=== PATIENT | male | born 1955 | race Caucasian/White ===

== ENCOUNTER 2019-04-08 14:12 | Emergency (ER) | payer OTHER ==
[2019-04-08] MEDS ORDERED: MORPHINE 4 MG/ML SYR ONE (14:53)
[2019-04-08] MEDS ORDERED: ONDANSETRON 4 MG/2 ML VIAL ONE (14:53)
[2019-04-08] MEDS ORDERED: NA CHLORIDE 0.9% 1,000 ML ONE ×2 (14:54→17:45)
[2019-04-08] MEDS ORDERED: FAMOTIDINE 20 MG/2 ML VIAL IV ONE (14:54)
[2019-04-08 15:23] LABS: Absolute Lymphocytes (CBC) 0.6 K/uL (0.7-4.9); Basophils % 0.4 % (0-1.3); Hematocrit 42.3 % (39.6-49.0); Lymphocytes % 10.3 % (15.3-44.8); MPV 8.2 fL (7.6-11.3); RBC Red Blood Cell Count 4.09 M/uL (4.33-5.43)
--- NOTE | 2019-04-08 15:24 | RAD REPORT ---
EXAM DESCRIPTION: RAD - Chest Single View - 04/08/2019 2:50 pm CLINICAL HISTORY: ABDOMINAL DISTENTION Chest pain. COMPARISON: <Comparisons> FINDINGS: Portable technique limits examination quality. The lungs are grossly clear. The heart is normal in size. No displaced fractures. IMPRESSION: No acute intrathoracic process suspected.
[2019-04-08 15:29] LABS: Protime INR 1.04
--- NOTE | 2019-04-08 15:43 | RAD REPORT ---
EXAM DESCRIPTION: US - Abdomen Exam Limited - 04/08/2019 3:26 pm CLINICAL HISTORY: ABD PAIN COMPARISON: No comparisons FINDINGS: The gallbladder demonstrates no gallstones. Tiny 4 mm gallbladder polyp possible. No peric holecystic fluid or gallbladder wall thickening. The common bile duct is normal measuring 4 mm. The liver demonstrates fatty liver. IMPRESSION: No gallstones or pathologic biliary dilatation. 4 mm gallbladder polyp possible.
[2019-04-08 15:44] LABS: ALT/SGPT 50 U/L (12-78); AST/SGOT 63 U/L (15-37); Albumin 3.8 g/dL (3.4-5.0); Alkaline Phosphatase 83 U/L (45-117); BUN Blood Urea Nitrogen 15 mg/dL (7-18); Bicarbonate 28 mmol/L (21-32); Bilirubin Direct 0.3 mg/dL (0-0.2); Bilirubin Total 0.8 mg/dL (0.2-1.0); Glucose Level 128 mg/dL (74-106); Lipase 470 U/L (73-393); NT PRO-BNP 69 pg/mL (<125); Potassium 3.8 mmol/L (3.5-5.1); Protein, Total 8.1 g/dL (6.4-8.2); Sodium Level 140 mmol/L (136-145); Troponin (Emerg Dept Use Only) < 0.02 ng/mL (0.0-0.045)
--- NOTE | 2019-04-08 18:21 | RAD REPORT ---
EXAM DESCRIPTION: CTAbdomen Pelvis W Contrast - 04/08/2019 5:58 pm CLINICAL HISTORY: Abdominal pain. ABD PAIN COMPARISON: CT ABD PELVIS W CONTRAST dated 09/05/2013 TECHNIQUE: Biphasic CT imaging of the abdomen and pelvis was performed with 100 ml non-ionic IV cont rast. All CT scans are performed using dose optimization technique as appropriate and may include automated exposure control or mA/KV adjustment according to patient size. FINDINGS: The lung bases are clear.Small hiatal hernia is seen with gastroesophageal reflux. Advanced fatty liver infiltration pattern is seen. The spleen, adrenal glands and pancreas are within normal limits. Small stone is seen inferior left kidney without hydronephrosis. No right-sided hydro nephrosis. No bowel obstruction, free air, free fluid or abscess. Small fat containing right upper quadrant vent ral hernias. Scattered colonic diverticulosis is seen. The appendix appears surgically absent. No ev idence of significant lymphadenopathy. Lumbar orthopedic hardware noted. IMPRESSION: No acute intra-abdominal or pelvic finding. Advanced fatty liver. GERD.
--- NOTE | 2019-04-08 18:30 | ER ---
Nurse's Notes [facility] Name: Osmel Ely Age: 63 yrs Sex: Male : 1955 Arrival Date: 04/08/2019 Time: 14:15 Bed 25 Private MD: Jefferson Ortiz H Diagnosis: Abdominal tenderness;Gastritis, unspecified;Functional dyspepsia Presentation: 04/08 14:20 Presenting complaint: Patient states: I have been having a lot of mucus drainage since la1 and that usually causes me to have "mucus attacks" where I get abd pain and vomiting. Pt also reports hx of diverticulitis. Transition of care: patient was not received from another setting of care. Onset of symptoms was April 08, 2019. Risk Assessment: Do you want to hurt yourself or someone else? Patient reports no desire to harm self or others. Initial Sepsis Screen: Does the patient meet any 2 criteria? HR > 90 bpm. Does the patient have a suspected source of infection? No. Patient's initial sepsis screen is negative. Care prior to arrival: None. 14:20 Method Of Arrival: Ambulatory la1 14:20 Acuity: JEAN 3 la1 Historical: - Allergies: 14:21 Hydrocodone-Acetaminophen; la1 - PMHx: 14:21 Hypertension; High Cholesterol; GERD; la1 - PSHx: 14:21 Appendectomy; colon sx due to diverticulitis with abscess; la1 - Immunization history:: Adult Immunizations up to date. - Social history:: Smoking status: Patient/guardian denies using tobacco, Smoking status: Patient uses tobacco products, smokes one-half pack cigarettes per day. - Ebola Screening: : No symptoms or risks identified at this time. - Family history:: not pertinent. Screenin:28 Abuse screen: Denies threats or abuse. Denies injuries from another. Nutritional aj1 screening: No deficits noted. Tuberculosis screening: No symptoms or risk factors identified. 19:12 Fall Risk None identified. aj1 Assessment: 14:28 General: Appears in no apparent distress. comfortable, Behavior is calm, cooperative, aj1 appropriate for age. Pain: Complains of pain in right upper quadrant Pain does not radiate. Pain currently is 5 out of 10 on a pain scale. Neuro: Level of Consciousness is awake, alert, obeys commands, Oriented to person, place, time, situation. Cardiovascular: Patient's skin is warm and dry. Respiratory: Airway is patent Respiratory effort is even, unlabored, Respiratory pattern is regular, symmetrical. GI: Abdomen is flat, non-distended, Bowel sounds present X 4 quads. Abd is soft X 4 quads Abdomen is tender to palpation in right upper quadrant Reports diarrhea, nausea, vomiting. : No signs and/or symptoms were reported regarding the genitourinary system. EENT: No signs and/or symptoms were reported regarding the EENT system. Derm: No signs and/or symptoms reported regarding the dermatologic system. Skin is pink, warm \\T\\ dry. normal. Musculoskeletal: No signs and/or symptoms reported regarding the musculoskeletal system. Circulation, motion, and sensation intact. 15:30 Reassessment: Patient appears in no apparent distress at this time. No changes from aj1 previously documented assessment. Patient and/or family updated on plan of care and expected duration. Pain level reassessed. Patient is alert, oriented x 3, equal unlabored respirations, skin warm/dry/pink. 16:10 Reassessment: Patient appears in no apparent distress at this time. No changes from aj1 previously documented assessment. Patient and/or family updated on plan of care and expected duration. Pain level reassessed. Patient is alert, oriented x 3, equal unlabored respirations, skin warm/dry/pink. 17:15 Reassessment: Patient appears in no apparent distress at this time. No changes from aj1 previously documented assessment. Patient and/or family updated on plan of care and expected duration. Pain level reassessed. Patient is alert, oriented x 3, equal unlabored respirations, skin warm/dry/pink. 18:15 Reassessment: Patient appears in no apparent distress at this time. No changes from aj1 previously documented assessment. Patient and/or family updated on plan of care and expected duration. Pain level reassessed. Patient is alert, oriented x 3, equal unlabored respirations, skin warm/dry/pink. 19:11 Reassessment: Patient appears in no apparent distress at this time. No changes from aj1 previously documented assessment. Patient and/or family updated on plan of care and expected duration. Pain level reassessed. Patient is alert, oriented x 3, equal unlabored respirations, skin warm/dry/pink. Vital Signs: 14:21 BP 125 / 79; Pulse 106; Resp 16; Temp 98.6; Pulse Ox 98% on R/A; Weight 61.69 kg; la1 Height 5 ft. 6 in. (167.64 cm); 15:15 BP 124 / 70; Pulse 88; Resp 18; Pulse Ox 99% ; aj1 16:15 BP 145 / 87; Pulse 68; Pulse Ox 100% on R/A; jp3 17:15 BP 136 / 75; Pulse 72; Resp 18; Pulse Ox 99% on R/A; aj1 18:15 BP 122 / 65; Pulse 62; Resp 18; Pulse Ox 99% on R/A; aj1 19:12 BP 125 / 72; Pulse 66; Resp 16; Pulse Ox 99% on R/A; aj1 14:21 Body Mass Index 21.95 (61.69 kg, 167.64 cm) la1 ED Course: 14:15 Patient arrived in ED. as 14:16 Jefferson Ortiz DO is Private Physician. as 14:20 Triage completed. la1 14:22 Arm band placed on right wrist. la1 14:24 Cassandra Rosario, RN is Primary Nurse. aj1 14:28 Patient has correct armband on for positive identification. Placed in gown. Bed in low aj1 position. Call light in reach. 14:28 No provider procedures requiring assistance completed. aj1 14:31 Jm Amador MD is Attending Physician. delon 14:51 XRAY Chest (1 view) In Process Unspecified. EDMS 15:25 Ultrasound completed. Patient tolerated well. sg3 15:25 US Abdomen Limited In Process Unspecified. EDMS 15:35 EKG done, by ED staff, reviewed by Jm Amador MD. Patient maintains SpO2 saturation jp3 greater than 95% on room air. 16:13 Basic Metabolic Panel Sent. jp3 16:13 CBC with Diff Sent. jp3 16:13 LFT's Sent. jp3 17:58 CT completed. Patient tolerated procedure well. Patient moved back from CT. mw3 18:01 CT Abd/Pelvis - PO and IV Contrast In Process Unspecified. EDMS 18:29 Jefferson Ortiz DO is Referral Physician. delon 18:29 Delvin Card MD is Referral Physician. delon 19:13 IV discontinued, intact, bleeding controlled, No redness/swelling at site. Pressure aj1 dressing applied. Administered Medications: 15:07 Drug: Pepcid 20 mg Route: IVP; Site: left antecubital; aj1 15:08 Drug: morphine 4 mg {Note: RASS score 0- alert and priented.} Route: IVP; Site: left aj1 antecubital; 15:08 Drug: Zofran 4 mg Route: IVP; Site: left antecubital; aj1 15:09 Drug: NS 0.9% 1000 ml Route: IV; Rate: 1 bolus; Site: left antecubital; aj1 17:51 Drug: NS 0.9% 1000 ml Route: IV; Rate: 1 bolus; Site: left antecubital; aj1 Outcome: 18:29 Discharge ordered by . [facility] 19:13 Discharged to home ambulatory. aj1 19:13 Condition: good 19:13 Discharge instructions given to patient, Instructed on discharge instructions, follow up and referral plans. medication usage, Demonstrated understanding of instructions, follow-up care, medications, Prescriptions given X 3. 19:13 Patient left the ED. aj1 Signatures: Dispatcher [employer] EDMS Cassandra Rosario RN RN aj1 Jm Amador MD MD cha Martinez, Amelia as Attema, Lee, RN RN Radha Trivedi3 Екатерина Branham 3 Judah Rodriguez jp3
--- NOTE | 2019-04-08 18:31 | EDPHYS ---
Physician Documentation [facility] Name: Osmel Ely Age: 63 yrs Sex: Male : 1955 Arrival Date: 04/08/2019 Time: 14:15 Bed 25 Private MD: Jefferson Ortiz H ED Physician Jm Amador HPI: 04/08 14:46 This 63 yrs old Male presents to ER via Ambulatory with complaints of delon Abdominal Pain. 14:46 The patient presents with abdominal pain in the epigastric area, in the upper abdomen. delon Onset: The symptoms/episode began/occurred 1 day(s) ago. The symptoms radiate to right back. Associated signs and symptoms: none. The symptoms are described as constant, crampy. Modifying factors: The symptoms are alleviated by nothing, the symptoms are aggravated by nothing. The patient has not experienced similar symptoms in the past. Historical: - Allergies: 14:21 Hydrocodone-Acetaminophen; la1 - PMHx: 14:21 Hypertension; High Cholesterol; GERD; la1 - PSHx: 14:21 Appendectomy; colon sx due to diverticulitis with abscess; la1 - Immunization history:: Adult Immunizations up to date. - Social history:: Smoking status: Patient/guardian denies using tobacco, Smoking status: Patient uses tobacco products, smokes one-half pack cigarettes per day. - Ebola Screening: : No symptoms or risks identified at this time. - Family history:: not pertinent. ROS: 14:46 Constitutional: Negative for fever, chills, and weight loss, Eyes: Negative for injury, delon pain, redness, and discharge, ENT: Negative for injury, pain, and discharge, Neck: Negative for injury, pain, and swelling, Cardiovascular: Negative for chest pain, palpitations, and edema, Respiratory: Negative for shortness of breath, cough, wheezing, and pleuritic chest pain, Back: Negative for injury and pain, : Negative for injury, bleeding, discharge, and swelling, MS/Extremity: Negative for injury and deformity, Skin: Negative for injury, rash, and discoloration, Neuro: Negative for headache, weakness, numbness, tingling, and seizure, Psych: Negative for depression, anxiety, suicide ideation, homicidal ideation, and hallucinations, Allergy/Immunology: Negative for hives, rash, and allergies, Endocrine: Negative for neck swelling, polydipsia, polyuria, polyphagia, and marked weight changes, Hematologic/Lymphatic: Negative for swollen nodes, abnormal bleeding, and unusual bruising. 14:46 Abdomen/GI: Positive for abdominal pain, of the epigastric area and right upper quadrant. Exam: 14:46 Constitutional: This is a well developed, well nourished patient who is awake, alert, delon and in no acute distress. Head/Face: Normocephalic, atraumatic. Eyes: Pupils equal round and reactive to light, extra-ocular motions intact. Lids and lashes normal. Conjunctiva and sclera are non-icteric and not injected. Cornea within normal limits. Periorbital areas with no swelling, redness, or edema. ENT: Nares patent. No nasal discharge, no septal abnormalities noted. Tympanic membranes are normal and external auditory canals are clear. Oropharynx with no redness, swelling, or masses, exudates, or evidence of obstruction, uvula midline. Mucous membranes moist. Neck: Trachea midline, no thyromegaly or masses palpated, and no cervical lymphadenopathy. Supple, full range of motion without nuchal rigidity, or vertebral point tenderness. No Meningismus. Chest/axilla: Normal chest wall appearance and motion. Nontender with no deformity. No lesions are appreciated. Cardiovascular: Regular rate and rhythm with a normal S1 and S2. No gallops, murmurs, or rubs. Normal PMI, no JVD. No pulse deficits. Respiratory: Lungs have equal breath sounds bilaterally, clear to auscultation and percussion. No rales, rhonchi or wheezes noted. No increased work of breathing, no retractions or nasal flaring. Back: No spinal tenderness. No costovertebral tenderness. Full range of motion. Male : Normal genitalia with no discharge or lesions. Skin: Warm, dry with normal turgor. Normal color with no rashes, no lesions, and no evidence of cellulitis. MS/ Extremity: Pulses equal, no cyanosis. Neurovascular intact. Full, normal range of motion. Neuro: Awake and alert, GCS 15, oriented to person, place, time, and situation. Cranial nerves II-XII grossly intact. Motor strength 5/5 in all extremities. Sensory grossly intact. Cerebellar exam normal. Normal gait. Psych: Awake, alert, with orientation to person, place and time. Behavior, mood, and affect are within normal limits. 14:46 Abdomen/GI: Inspection: abdomen appears normal, Bowel sounds: normal, Palpation: mild abdominal tenderness, moderate abdominal tenderness, in the epigastric area and right upper quadrant, Liver: no appreciated palpable abnormalities, Hernia: not appreciated. Vital Signs: 14:21 BP 125 / 79; Pulse 106; Resp 16; Temp 98.6; Pulse Ox 98% on R/A; Weight 61.69 kg; la1 Height 5 ft. 6 in. (167.64 cm); 15:15 BP 124 / 70; Pulse 88; Resp 18; Pulse Ox 99% ; aj1 16:15 BP 145 / 87; Pulse 68; Pulse Ox 100% on R/A; jp3 17:15 BP 136 / 75; Pulse 72; Resp 18; Pulse Ox 99% on R/A; aj1 18:15 BP 122 / 65; Pulse 62; Resp 18; Pulse Ox 99% on R/A; aj1 19:12 BP 125 / 72; Pulse 66; Resp 16; Pulse Ox 99% on R/A; aj1 14:21 Body Mass Index 21.95 (61.69 kg, 167.64 cm) la1 MDM: 14:32 Patient medically screened. [facility] 14:48 Data reviewed: vital signs, nurses notes, lab test result(s), EKG, radiologic studies, [facility] CT scan, plain films, ultrasound. 04/08 14:31 Order name: Basic Metabolic Panel [facility] 04/08 14:31 Order name: CBC with Diff [facility] 04/08 14:31 Order name: LFT's [facility] 04/08 14:31 Order name: Magnesium; Complete Time: 16:02 [facility] 04/08 14:31 Order name: NT PRO-BNP; Complete Time: 16:02 [facility] 04/08 14:31 Order name: PT-INR; Complete Time: 16:02 [facility] 04/08 14:31 Order name: Troponin (emerg Dept Use Only); Complete Time: 16:02 [facility] 04/08 14:31 Order name: XRAY Chest (1 view); Complete Time: 16:02 [facility] 04/08 14:31 Order name: Lipase; Complete Time: 16:02 [facility] 04/08 14:31 Order name: CT Abd/Pelvis - PO and IV Contrast; Complete Time: 18:22 [facility] 04/08 14:34 Order name: Basic Metabolic Panel; Complete Time: 16:02 [facility] 04/08 14:34 Order name: CBC with Automated Diff; Complete Time: 16:02 [facility] 04/08 14:34 Order name: Liver (Hepatic) Function; Complete Time: 16:02 [facility] 04/08 14:43 Order name: US Abdomen Limited; Complete Time: 16:02 [facility] 04/08 14:31 Order name: EKG; Complete Time: 14:34 [facility] 04/08 14:31 Order name: Cardiac monitoring; Complete Time: 14:49 [facility] 04/08 14:31 Order name: EKG - Nurse/Tech; Complete Time: 16:04 [facility] 04/08 14:31 Order name: IV Saline Lock; Complete Time: 14:49 [facility] 04/08 14:31 Order name: Labs collected and sent; Complete Time: 14:50 [facility] 04/08 14:31 Order name: O2 Per Protocol; Complete Time: 14:50 [facility] 04/08 14:31 Order name: O2 Sat Monitoring; Complete Time: 14:50 [facility] Administered Medications: 15:07 Drug: Pepcid 20 mg Route: IVP; Site: left antecubital; [facility] 15:08 Drug: morphine 4 mg {Note: RASS score 0- alert and priented.} Route: IVP; Site: left aj antecubital; 15:08 Drug: Zofran 4 mg Route: IVP; Site: left antecubital; [facility] 15:09 Drug: NS 0.9% 1000 ml Route: IV; Rate: 1 bolus; Site: left antecubital; [facility] 17:51 Drug: NS 0.9% 1000 ml Route: IV; Rate: 1 bolus; Site: left antecubital; [facility] Disposition: 04/08/19 18:29 Discharged to Home. Impression: Abdominal tenderness, Gastritis, unspecified, Functional dyspepsia. - Condition is Stable. - Discharge Instructions: Abdominal Pain, Adult, Nausea and Vomiting, Adult, Abdominal Pain, Adult, [id number]. - Prescriptions for Bentyl 20 mg Oral Tablet - take 1 tablet by ORAL route every 6 hours As needed; 20 tablet. Protonix 40 mg Oral Tablet - take 1 tablet by ORAL route once daily; 30 tablet. Zofran 4 mg Oral Tablet - take 1 tablet by ORAL route every 12 hours As needed; 20 tablet. - Medication Reconciliation Form, Thank You Letter, Antibiotic Education, Prescription Opioid Use form. - Follow up: Jefferson Ortiz; When: 2 - 3 days; Reason: Recheck today's complaints, Continuance of care, Re-evaluation by your physician. Follow up: Fátimasavanna Ana Lilialinda; When: 2 - 3 days; Reason: Recheck today's complaints, Continuance of care, Re-evaluation by your physician. - Problem is new. - Symptoms have improved. Signatures: Dispatcher [employer] EDMS Cassandra Rosario RN RN aj1 Jm Amador MD MD cha Attema, Lee RN RN la1 Corrections: (The following items were deleted from the chart) 19:13 18:29 04/08/2019 18:29 Discharged to Home. Impression: Abdominal tenderness; Gastritis, aj1 unspecified; Functional dyspepsia. Condition is Stable. Discharge Instructions: Abdominal Pain, Adult, Nausea and Vomiting, Adult, Abdominal Pain, Adult, [id number]. Prescriptions for Bentyl 20 mg Oral Tablet - take 1 tablet by ORAL route every 6 hours As needed; 20 tablet, Protonix 40 mg Oral Tablet - take 1 tablet by ORAL route once daily; 30 tablet, Zofran 4 mg Oral Tablet - take 1 tablet by ORAL route every 12 hours As needed; 20 tablet. and Forms are Medication Reconciliation Form, Thank You Letter, Antibiotic Education, Prescription Opioid Use. Follow up: Jefferson Ortiz; When: 2 - 3 days; Reason: Recheck today's complaints, Continuance of care, Re-evaluation by your physician. Follow up: Nadianerisavanna Card; When: 2 - 3 days; Reason: Recheck today's complaints, Continuance of care, Re-evaluation by your physician. Problem is new. Symptoms have improved. delon
--- NOTE | 2019-04-09 10:24 | EKG ---
Test Date: 2019-04-08 Test Time: 15:34:46 Pick Up Man: REBEKAH MEASUREMENT RESULTS: Intervals: Rate: 77 OK: 148 QRSD: 78 QT: 374 QTc: 423 [place]: P: 54 OK: 148 QRS: 17 T: 37 INTERPRETIVE STATEMENTS: Normal sinus rhythm Normal ECG Compared to ECG 07/09/2009 05:40:12 Sinus bradycardia no longer present Electronically Signed On 04-09-19 10:23:02 CDT by Tony Oquendo
== END 2019-04-08 19:13 | disposition home or self-care (01) ==
LOC: ER 14:12
DX: K29.70 Gastritis, unspecified, without bleeding (principal); I10 Essential (primary) hypertension; E78.00 Pure hypercholesterolemia, unspecified; F17.210 Nicotine dependence, cigarettes, uncomplicated; Z88.5 Allergy status to narcotic agent
CPT/HCPCS: 93005; 85025; 80048; 36415; 83735; 85610; 80076; 84484; 83690; 83880; 74177; 71045; 76705; 96375; 96374; 99285; Q9967; J7030 ×2; J2405

== ENCOUNTER 2021-09-29 07:56 | Day surgery (SDC) | payer OTHER ==
[2021-09-25 13:22] LABS: Absolute Lymphocytes (CBC) 0.5 K/uL (0.7-4.9); Hematocrit 40.5 % (39.6-49.0); Lymphocytes % 10.3 % (15.3-44.8); MPV 7.9 fL (7.6-11.3); RBC Red Blood Cell Count 3.88 M/uL (4.33-5.43)
--- NOTE | 2021-09-25 14:04 | RAD REPORT ---
EXAM DESCRIPTION: Kimberlyn Dominguez (2 Views)09/25/2021 1:39 pm CLINICAL HISTORY: Preop for hernia repair COMPARISON: 2019 FINDINGS: The lungs appear clear of acute infiltrate. The heart is normal size IMPRESSION: No acute abnormalities displayed
[2021-09-29] MEDS ORDERED: Ringers Lactate 1,000 ML IV ONE (08:03)
[2021-09-29] MEDS ORDERED: CEFAZOLIN/NS 1gm 1 GM/50 ML BAG ONE (08:03)
[2021-09-29] MEDS ORDERED: MIDAZOLAM HCL 2 MG/2 ML INJ ONE (09:37)
[2021-09-29] MEDS ORDERED: FENTANYL CITR 100 MCG/2 ML ONE (09:37)
[2021-09-29] MEDS ORDERED: propofoL 200 MG/20 ML VIAL IV ONE (09:37)
[2021-09-29] MEDS ORDERED: ONDANSETRON 4 MG/2 ML VIAL ONE (09:38)
[2021-09-29] MEDS ORDERED: LIDOCAINE 2% MPF 5 ML VIAL ONE (09:38)
[2021-09-29] MEDS ORDERED: ROCURONIUM 50 MG/5 ML VIAL IV ONE (09:38)
[2021-09-29] MEDS ORDERED: dexAMETHasone 10 MG/ML VIAL ONE (09:38)
[2021-09-29] MEDS ORDERED: KETOROLAC 30 MG/ML INJ ONE (09:38)
[2021-09-29] MEDS ORDERED: NA CHLORIDE 0.9% 50 ML ONE (10:18)
[2021-09-29] MEDS ORDERED: NS 0.9% VIAL 10 ML ONE (10:18)
[2021-09-29] MEDS ORDERED: Phenylephrine HCl 10 MG/ML 1 ML VIAL ONE (10:18)
[2021-09-29] MEDS ORDERED: GLYCOPYRROLATE 0.2 MG/ML SYR ONE (10:51)
[2021-09-29] MEDS ORDERED: NEOSTIGMINE 1 MG/ML -5 ML ONE (10:53)
[2021-09-29] MEDS: FENTANYL CITR 100 MCG/2 ML ONE ×2 (11:32→11:46)
[2021-09-29] MEDS ORDERED: CODEINE 30MG/APAP 300MG TAB ONE (13:14)
[2021-09-29] MEDS ORDERED: CODEINE 30MG/APAP 300MG TAB PO ONE (13:14)
[2021-09-29 14:10] VITALS: BP 118/74; TEMP 97.8; O2SAT 97
--- NOTE | 2021-09-30 01:52 | OP ---
Date of Procedure: 09/29/2021 Surgeon: Brain Vela MD Bundle Cutter: CECE Schaefer. Preoperative Diagnosis: Right spigelian hernia. Postoperative Diagnosis: Right spigelian hernia. Procedure: Laparoscopic repair of right spigelian hernia. Estimated Blood Loss: Minimal. Specimen: Hernia sac. Finding: As above. Anesthesia: General. Complications: None. Disposition: The patient tolerated the procedure in stable condition and taken to Recovery in good g eneral condition. Description Of Procedure: The patient was brought to the OR and placed in supine position. General anesthesia begun. The patient was prepped and draped in the usual sterile fashion. Marcaine 0.5% wa s infiltrated locally. A 15-blade was used to make a 1 cm left upper quadrant incision. Subcutaneou s tissue divided. Fascia identified and divided. #1 Vicryl stay suture was placed. Peritoneal cavi ty entered with sharp and blunt dissection. A 12 mm trocar placed into the peritoneal cavity under d irect vision. Pneumoperitoneum was established and then, 5 mm trocar placed in the left lower quadra nt under direct vision. Laparoscopy revealed an incarcerated omentum into a right spigelian hernia, defect was approximately 2 x 3 cm. Care was taken with the LigaSure to lyse the incarcerated omentum on the edges so that it could be easily reduced, which it was and then, there was no evidence of any bowel involvement and good edges were obtained to allow for placement of a mesh and then, a 3 cm inc ision over the hernia was made. Subcutaneous tissue divided. Hernia sac identified and excised down to the fascial edges. Good fascial edges created. The Ventralex mesh placed medium in size into th e peritoneal cavity and secured with a [id number] #1 PDS suture and then, pneumoperitoneum reest ablished and AbsorbaTack used to secure the mesh to the peritoneal surface a little bit better and th en complete coverage of the area with good borders all the way around accomplished. No evidence of b leeding or bowel injury appreciated. Subsequently, all trocars were removed under direct vision. St ay sutures were tied to each other to reapproximate the fascial defect. Subcutaneous wounds were irr igated. Bleeding was controlled with cautery. A 3-0 chromic used to approximate subcutaneous tissue and close skin. Sterile dressing applied. The patient was awakened and taken to Recovery in good g eneral condition. Discharge Note: The patient will go to Day Surgery and home when stable. Disposition: Home. Condition: Stable. Discharge Instructions: Resume home medications and diet. Activity as tolerated. No heavy lifting. Remove outer dressing in 2 days. Shower. Keep wound clean and dry. Keep Steri-Strips on at all t imes. Incentive spirometry as ordered. Abdominal binder as ordered. Follow up in my office in 1 we ek. Call for appointment. /MODL Voice ID: [id number] Report ID: [id number]
== END 2021-09-29 13:27 | disposition home or self-care (01) ==
LOC: OR 07:56
PROVIDERS: ATTEND Surgery
PROC: 0WUF4JZ Supplement Abdominal Wall with Synthetic Substitute, Percutaneous Endoscopic Approach (ICD-10-PCS; principal; 2021-09-29 09:30)
DX: K43.9 Ventral hernia without obstruction or gangrene (principal)
CPT/HCPCS: 93005; 85025; 80048; 36415; 88302; 71046; 49652; J2704; J2370; J2250; J3010 ×2; J1100; J2710; J0690; J7120; J2405

== ENCOUNTER 2022-01-07 07:02 | Day surgery (SDC) | payer OTHER ==
--- NOTE | 2022-01-06 10:17 | EKG ---
Test Date: 2022-01-06 Test Time: 08:21:42 Fermentation Manager: HUY MEASUREMENT RESULTS: Intervals: Rate: 93 SD: 150 QRSD: 76 QT: 342 QTc: 425 [place]: P: 74 SD: 150 QRS: 50 T: 56 INTERPRETIVE STATEMENTS: Normal sinus rhythm Normal ECG Compared to ECG 09/25/2021 13:27:49 No significant changes Electronically Signed On 01-06-22 10:17:21 CDT by Ryan Whitmore
[2022-01-07] MEDS ORDERED: Ringers Lactate 1,000 ML IV ONE (07:10)
[2022-01-07 07:39] VITALS: O2SAT 100
[2022-01-07] MEDS ORDERED: propofoL 200 MG/20 ML VIAL IV ONE ×2 (09:12→09:13)
[2022-01-07] MEDS ORDERED: LIDOCAINE 1% MPF 30 ML VIAL ONE (09:13)
[2022-01-07] MEDS ORDERED: GLYCOPYRROLATE 0.2 MG/ML SYR ONE (09:13)
[2022-01-07] MEDS ORDERED: Phenylephrine HCl 10 MG/ML 1 ML VIAL ONE (10:04)
--- NOTE | 2022-01-07 10:36 | ENDO RPT ---
[address], [address] COLONOSCOPY PROCEDURE REPORT EXAM DATE: 01/07/2022 PATIENT NAME: Osmel Ely MR #: [id number] BIRTHDATE: 1955 ATTENDING: Brain Vela M.D. STATUS: outpatient [employer] FIELD AGENT: Raven Washington RN INDICATIONS: The patient is a 66 yr old Male here for a colonoscopy due to diverticulosis PROCEDURE PERFORMED: Colonoscopy with biopsy - cold polypectomy MEDICATIONS: Per Anesthesia. ESTIMATED BLOOD LOSS: None CONSENT: The patient understands the risks and benefits of the procedure and understands that these risks include, but are not limited to: sedation, allergic reaction, infection, perforation and/or bleeding. Alternative means of evaluation and treatment include, among others: physical exam, x-rays, and/or surgical intervention. The patient elects to proceed with this endoscopic procedure. DESCRIPTION OF PROCEDURE: During intra-op preparation period all mechanical medical equipment was checked for proper function. Hand hygiene and appropriate measures for infection prevention was taken. Procedure, possible complications, alternatives including, but not limited to possibility of bleeding, perforation, tear, infection, sepsis, need for surgery, need for blood transfusion, were explained to the patient. After the risks, benefits and alternatives of the procedure were thoroughly explained, Informed consent was verified, confirmed and timeout was successfully executed by the treatment team. The patient was placed in the left lateral position. A digital rectal exam was performed and revealed an enlarged prostate. After appropriate level of anesthesia, the scope was passed. The [id number] ([id number] endoscope was introduced through the anus and advanced to the cecum, which was identified by the ileocecal valve. The quality of the prep was fair. The instrument was then slowly withdrawn as the colon was fully examined. Scope withdrawal time was 55 minutes. COLON FINDINGS: A polypoid shaped and smooth pedunculated polyp ranging between 5-9mm in size was found in the descending colon. Retroflexed views revealed no abnormalities. The scope was then completely withdrawn from the patient and the procedure terminated. ADVERSE EVENTS: There were no complications. IMPRESSIONS: Pedunculated polyp ranging between 5-9mm in size was found in the descending colon RECOMMENDATIONS: 1. fiber rich diet 2. follow-up: office 1 week(s) 3. Metamucil 4. no seeds in diet RECALL: Return in 2 year(s) for Colonoscopy. Brain Vela M.D. eSigned: Brain Vela M.D. 01/07/2022 10:36 AM cc: Hansel Ortiz M.D. CPT CODES: ICD9 CODES: 1. 600.0 Hypertrophy (benign) of prostate 2. 211.3 Benign neoplasm of colon PATIENT NAME: Osmel Ely MR#: [id number]
[2022-01-07 11:31] VITALS: TEMP 97.2
[2022-01-07 11:33] VITALS: BP 124/71
== END 2022-01-07 11:17 | disposition home or self-care (01) ==
LOC: OR 07:02
PROVIDERS: ATTEND Surgery
PROC: 0DBM8ZX Excision of Descending Colon, Via Natural or Artificial Opening Endoscopic, Diagnostic (ICD-10-PCS; principal; 2022-01-07 08:15)
DX: K57.30 Diverticulosis of large intestine without perforation or abscess without bleeding (principal); K63.5 Polyp of colon; Z12.5 Encounter for screening for malignant neoplasm of prostate; N40.0 Benign prostatic hyperplasia without lower urinary tract symptoms; Z20.822 Contact with and (suspected) exposure to COVID-19
CPT/HCPCS: 93005; 36415; 88305; 45380; G0103; U0003; J2704 ×2; J2370; J7120